=== PATIENT | male | born 1990 | race Caucasian/White ===

== ENCOUNTER 2018-08-28 02:20 | Emergency (ER) | payer MEDICAID ==
[~2018-08-28] VITALS: Ht 175.3 cm; Wt 100.0 kg
[2018-08-28 02:21] VITALS: BP 157/97
[2018-08-28] MEDS ORDERED: PENICILLIN V POTASSIUM 500 MG TABLET PO ONE (03:45)
[2018-08-28] MEDS ORDERED: IBUPROFEN 800 MG TABLET PO ONE (03:45)
== END 2018-08-28 04:50 | disposition home or self-care (01) ==
LOC: EMS 02:22
DX: J02.9 Acute pharyngitis, unspecified (principal); F12.90 Cannabis use, unspecified, uncomplicated; F17.210 Nicotine dependence, cigarettes, uncomplicated
CPT/HCPCS: 99406